=== PATIENT | male | born 1955 | race Caucasian/White ===

== ENCOUNTER 2023-04-14 09:51 | Emergency (ER) | payer MEDICARE, OTHER, SELFPAY ==
[2023-04-14 09:54] VITALS: BP 189/111; PULSE 82; RESP 17; TEMP 36.4; O2SAT 99; BMI 33.7
--- NOTE | 2023-04-14 10:56 | DI.RAD.S_ITS ---
PROCEDURE: XR HIP W PEL IF DONE LT 2V INDICATIONS: left hip pain, no injury TECHNIQUE: AP pelvis with lateral view(s) of the left hip(s). COMPARISON: None. FINDINGS: Bones: No fractures or dislocations. Pelvic ring appears intact. No suspicious bony lesions. Mild nonuniform joint space narrowing and osteophytic lipping of the acetabulum. Soft tissues: The visualized bowel gas pattern is normal. No suspicious soft tissue calcifications. IMPRESSION: No displaced fracture. Mild degenerative change. Kellgren-Prashant Grade 2. Dictated by: Polo Laguerre M.D. on 04/14/2023 at 11:39 Approved by: Polo Laguerre M.D. on 04/14/2023 at 11:40
--- NOTE | 2023-04-14 10:57 | DI.RAD.S_ITS ---
PROCEDURE: XR LUMBAR SPINE 2-3V INDICATIONS: LBP no injury TECHNIQUE: 3 views of the lumbar spine were acquired. COMPARISON: None. FINDINGS: Bones: 5 [id number] vertebrae are present. There is normal bony alignment. No vertebral body compression fractures. No suspicious bony lesions. Moderate to severe disc height loss at L5-S1. Diffuse facet arthrosis. Soft tissues: Overlying bowel gas pattern is normal. No suspicious soft tissue calcifications. IMPRESSION: Diffuse facet arthrosis. Moderate to severe degenerative disc disease at L4-5. Dictated by: Polo Laguerre M.D. on 04/14/2023 at 11:40 Approved by: Polo Laguerre M.D. on 04/14/2023 at 11:41
--- NOTE | 2023-04-14 11:34 | ED_ITS ---
HPI - Extremity Problem <Charlotte Christie PA-C - Last Filed: 04/14/23 11:57> General Chief complaint: Extremity Problem,Nontraumatic Stated complaint: lt hip pain Time Seen by Provider: 04/14/23 10:55 Source: patient Mode of arrival: Wheelchair History of Present Illness HPI Narrative: This is a 67-year-old male with a history of lumbar spine disc compression who presents with concern for a fairly sudden onset of left hip pain today when he was in the shower in the morning. 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 He does not remember any specific injury or having pain in this left hip until this morning when he was standing in the shower. States the pain is both in his SI joint low left buttock and back as well as his left hip. Describes the pain is fairly sharp and he did take a Tylenol this morning as well as use diclofenac on it with no improvement of symptoms. He endorses having a tingling sensation on the outside of his left thigh up high. He states this feels somewhat similar to when he had sciatica on the right side in the past--though he does not have pain radiating down the back of his thigh or from his buttock. Denies loss of bowel or bladder function, saddle paresthesias, one-sided weakness, fevers, chills, or any other symptoms. Patient has been ambulatory but has extreme difficulty standing up completely straight and also has difficulty laying flat. Related Data Previous Rx's Medication Instructions Recorded baclofen 10 mg tablet 10 mg PO TID 7 days #21 tabs 04/14/23 hydrocodone 5 mg-acetaminophen 325 1 tab PO Q6H PRN pain 3 days #12 04/14/23 mg tablet tabs prednisone 20 mg tablet 40 mg PO DAILY 5 days #10 tabs 04/14/23 Allergies Allergy/AdvReac Type Severity Reaction Status Date / Time No Known Drug Allergies Allergy Verified 04/14/23 09:54 Review of Systems <Charlotte Christie PA-C - Last Filed: 04/14/23 11:57> Review of Systems Narrative: See HPI Patient History <Charlotte Christie PA-C - Last Filed: 04/14/23 11:57> Social History Smoking Status: Unknown if ever smoked Smoking Status: Unknown if ever smoked alcohol intake frequency: a few times a week Substance Use Type: does not use Exam <Charlotte Christie PA-C - Last Filed: 04/14/23 11:57> Narrative Exam Narrative: GENERAL: 67 year old patient appears stated age. Well-developed patient, in moderate distress--patient moving about the room having difficulty finding comfortable position, initially in exam chair, then stands up leaning forward slightly with support of the chair in transitions to the wheelchair after a few minutes in the wheelchair has to stand up again. HEAD: Atraumatic. Normocephalic. EYES: Pupils equal round and reactive. Extraocular motions intact. No scleral icterus. No injection or drainage. ENT: Nose without bleeding, purulent drainage. Airway patent. NECK: Trachea midline. CARDIOVASCULAR: Regular rate and rhythm without murmurs, gallops, or rubs. RESPIRATORY: Clear to auscultation. Breath sounds equal bilaterally. No wheezes, rales, or rhonchi. GASTROINTESTINAL: Abdomen soft, non-tender, nondistended. EXTREMITIES: No edema or joint tenderness. BACK: There is no midline spinous process tenderness, step-offs or deformity, there is tenderness over the left SI joint, slight tenderness at the left buttock/sciatic nerve exit, no reproducible tenderness over the left hip or thigh. Patient has slight increased pain/discomfort with flexion and extension at the hip and knee on the left. Strength is intact 5/5 bilaterally LEs. Otherwise Nontender without deformity or crepitance. No flank tenderness. NEURO: AOx3. SKIN: No rash or erythema of visible areas Initial Vital Signs Initial Vital Signs: Vital Signs Temperature 97.5 F L 04/14/23 09:54 Pulse Rate 82 04/14/23 09:54 Respiratory Rate 17 04/14/23 09:54 Blood Pressure 189/111 H 04/14/23 09:54 Pulse Oximetry 99 04/14/23 09:54 Oxygen Delivery Method Room Air 04/14/23 09:54 <Barbara Olmos DO - Last Filed: 04/14/23 18:58> Initial Vital Signs Initial Vital Signs: Vital Signs Temperature 97.5 F L 06/01/23 09:54 Pulse Rate 82 04/14/23 09:54 Respiratory Rate 17 04/14/23 09:54 Blood Pressure 189/111 H 04/14/23 09:54 Pulse Oximetry 99 04/14/23 09:54 Oxygen Delivery Method Room Air 04/14/23 09:54 Course <Charlotte Christie PA-C - Last Filed: 04/14/23 11:57> Orders Ordered: ED Orders 04/14/23 10:56 XR hip w pel if done LT 2V Stat 04/14/23 10:57 XR lumbar spine 2-3V Stat Discontinued Medications Hydrocodone Bitart/Acetaminophen (Hydrocodone/Acet 5/325 Tablet) 1 tab PO NOW ONE Stop: 04/14/23 11:34 Last Admin: 04/14/23 11:38 Dose: 1 tab Documented By: MATIAS Vital Signs Vital signs: Vital Signs - 8 hr 04/14/23 11:59 Pulse Rate 79 Blood Pressure 169/100 H Pulse Oximetry 99 Oxygen Delivery Method Room Air <Barbara Olmos DO - Last Filed: 04/14/23 18:58> Orders Ordered: ED Orders 04/14/23 10:56 XR hip w pel if done LT 2V Stat 04/14/23 10:57 XR lumbar spine 2-3V Stat Discontinued Medications Hydrocodone Bitart/Acetaminophen (Hydrocodone/Acet 5/325 Tablet) 1 tab PO NOW ONE Stop: 04/14/23 11:34 Last Admin: 04/14/23 11:38 Dose: 1 tab Documented By: MATIAS Vital Signs Vital signs: Vital Signs - 8 hr 04/14/23 11:59 Pulse Rate 79 Blood Pressure 169/100 H Pulse Oximetry 99 Oxygen Delivery Method Room Air MDM - Extremity (Nontraumatic) <Charlotte Christie PA-C - Last Filed: 04/14/23 11:57> Differential Diagnosis Differential diagnosis: Likely other (Nerve compression, overuse injury, strain, muscle spasm, sciatica) Imaging Data Extremity x-ray #1: My Impression: Agree with Radiology Radiologist's Impression: [address] [address] XRay Report Signed Patient: Heladio Mccall MR#: [id number] : 1955 Acct:[id number] Age/Sex: 67 / M Date of Service: 04/14/23 Loc: ED Accession Number: [id number] ?? Procedure: XR hip w pel if done LT 2V Ordering Provider: Charlotte Christie P.A-C PROCEDURE:? XR HIP W PEL IF DONE LT 2V ? INDICATIONS:? left hip pain, no injury ? TECHNIQUE:? AP pelvis with lateral view(s) of the left hip(s).? ? COMPARISON:? None. ? FINDINGS:? ? Bones:? No fractures or dislocations.? Pelvic ring appears intact.? No suspicious bony lesions.? Mild nonuniform joint space narrowing and osteophytic lipping of the acetabulum. ? Soft tissues:? The visualized bowel gas pattern is normal.? No suspicious soft tissue calcifications.? ? ? IMPRESSION:? No displaced fracture.? Mild degenerative change. Kellgren-Prashant Grade 2. ? Dictated by: Polo Laguerre M.D. on 04/14/2023 at 11:39 ? ? Approved by: Polo Laguerre M.D. on 04/14/2023 at 11:40?? XR L spine: My Impression: Agree with Radiology Radiologist's Impression: [place] [address] XRay Report Signed Patient: Heladio Mccall MR#: [id number] : 1955 Acct:[id number] Age/Sex: 67 / M Date of Service: 04/14/23 Loc: ED Accession Number: [id number] ?? Procedure: XR lumbar spine 2-3V Ordering Provider: Charlotte Christie P.A-C PROCEDURE:? XR LUMBAR SPINE 2-3V ? INDICATIONS:? LBP no injury ? TECHNIQUE:? 3 views of the lumbar spine were acquired.? ? COMPARISON:? None. ? FINDINGS:? ? Bones:? 5 [id number] vertebrae are present.? There is normal bony alignment.? No vertebral body compression fractures.? No suspicious bony lesions.? Moderate to severe disc height loss at L5-S1.? Diffuse facet arthrosis. ? Soft tissues:? Overlying bowel gas pattern is normal.? No suspicious soft tissue calcifications.? ? ? IMPRESSION:? Diffuse facet arthrosis. ? Moderate to severe degenerative disc disease at L4-5. ? ? Dictated by: Polo Laguerre M.D. on 04/14/2023 at 11:40 ? ? Approved by: Polo Laguerre M.D. on 04/14/2023 at 11:41?? Treatment and disposition Shared decision making:: Shared decision-making was used in determining the evaluation today in the emergency department and patient's plan for outpatient follow-up. 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 No specific known injury of his in the recent overuse and being stationary vehicle. Exam today is suggestive of a nerve compression/localized inflammation, probable exacerbation of his lumbar spine disc compression and possible sciatica. X-rays are obtained as patient has no recent imaging, CT scan is not obtained given no specific injury, patient ambulatory and fairly low concern for fracture. X-rays returned showing degenerative disc disease L4-L5. No evidence of hip fracture there is degenerative disease of the hip noted by Radiology with radiographic evidence of osteoarthritis (Kellgren Prashant Grade II). Patient receives hydrocodone while in the emergency department due to acute pain. Patient is unable to take NSAIDs per PCP due to a known condition and risk of abdominal bleeding. Discussed options with the patient including steroid medication, short course of stronger pain meds, using Tylenol, with return precautions and close follow-up with [facility] care provider consider seeing orthopedics if he does not have resolution of symptoms or return to the emergency department if he has persistent or worsening symptoms. He is encouraged to follow up with his primary care provider and consider seeing orthopedics. Discharge Plan Departure Patient Disposition: Home Clinical Impression: Acute pain of left hip, Osteoarthritis of left hip, Degenerative disc disease, lumbar Activity Restrictions/Additional Instructions: *You have been diagnosed with osteoarthritis of the left hip, degenerative disc disease L4-L5 *What to do: *Please continue to take your regular medications as directed. [3] New medication prescriptions sent to your pharmacy: [Baclofen, hydrocodone, prednisone] [ ] New medication written as a paper prescription [ ] No new medications given *Please follow up with your primary care provider in 2-3 days, call for an appointment. Let them know you were seen in the Emergency Department and that we ask that you be seen in follow up. We will electronically transmit a record of today's note if your PCP is in our system. Because your having acute pain I am going to prescribe you a few doses of stronger pain medicine, I am also prescribing a muscle relaxer although I suspect your pain is more due to your osteoarthritis and possibly nerve compression, I am hopeful that steroid medication will be helpful in reducing her inflammation. You should definitely take Tylenol and you can continue to use topical diclofenac if you like. I encouraged her to follow up with your primary care provider, I am placing information below on 1 of our orthopedic providers here for follow-up as well you can call their office to get into be seen. If you do have new or worsening symptoms do not hesitate to seek re-evaluation. *If you do not have a primary care provider please contact the Resource line at [phone]. They will ask some questions about your medical history and help get you set up with a doctor in the community. *Return to Emergency Department if you should have any new, worsening or concerning symptoms, such as [fever greater than 101 F, shaking chills, worsening pain, persistent vomiting or other bothersome symptoms] Prescriptions: New hydrocodone-acetaminophen 5-325 mg tablet 1 tab PO Q6H PRN (Reason: pain) 3 Days Qty: 12 0RF baclofen 10 mg tablet 10 mg PO TID 7 Days Qty: 21 0RF prednisone 20 mg tablet 40 mg PO DAILY 5 Days Qty: 10 0RF Referrals: Miscellaneous,[facility] [Non-Staff] - Juana Ling MD [Physician] - Stand Alone Forms: Patient Portal/API <Barbara Olmos DO - Last Filed: 04/14/23 18:58> [facility] ED Attending Ashleyature Attestation: I was immediately available in the department for consultation. Documentation has been reviewed.
[2023-04-14] MEDS: HYDROCODONE/ACET 5/325 TABLET 1 TAB PO (11:38)
[2023-04-14 11:59] VITALS: BP 169/100; PULSE 79; O2SAT 99
== END 2023-04-14 12:02 | disposition home or self-care (01) ==
PROVIDERS: Emergency Provider Student in an Organized Health Care Education/Training Program; PCP Internal Medicine
DX: M25.552 Pain in left hip (principal); M16.12 Unilateral primary osteoarthritis, left hip; M51.36 Other intervertebral disc degeneration, lumbar region
CPT/HCPCS: 72100; 73502; 99283